=== PATIENT | female | born 1945 | race Caucasian/White ===

== ENCOUNTER → 2023-09-24 13:22 | Outpatient (REF) | payer MEDICARE, BC, SELFPAY | LOC: RAD 13:22 | PROVIDERS: ATTENDING PHYSICIAN Physician Assistant | DX: K59.01 Slow transit constipation (principal) | CPT/HCPCS: 74018 ==

== ENCOUNTER 2024-06-21 21:09 | Emergency (ER) | payer MEDICARE, BC, SELFPAY ==
[2024-06-21 21:21] VITALS: BP 99/67
[2024-06-21 21:40] LABS: % Basophils 0.3 % (0-2); % Immature Granulocytes 0.3 % (0-0.5); % Lymphocytes 19.2 % (20.5-51.1); % Monocytes 6.7 % (1.7-9.3); % Neutrophils 73.5 % (42.2-75.2); Absolute Lymphocytes 1.7 10^3/uL (1.2-3.4); Absolute Monocytes 0.6 10^3/uL (0.1-0.6); Absolute Neutrophils 6.5 10^3/uL (1.4-6.5); Hematocrit 33.9 % (37.0-47.0); Hemoglobin 11.5 g/dL (12.0-16.0); Mean Corp Hgb Conc. 33.9 g/dL (33.0-37.0); Mean Corpuscular Hgb 32.2 pg (27.0-31.0); Mean Platelet Volume 9.8 fL (7.4-10.4); Nucleated Red Blood Cells % 0 %; Platelet Count 313 10^3/uL (130-400); Red Blood Cell Count 3.57 10^6/uL (4.20-5.40); Red Cell Dist. Width 11.9 % (11.5-14.5); White Blood Cell Count 8.8 10^3/uL (4.8-10.8)
[2024-06-21 21:58] LABS: ALT (SGPT) 19 U/L (0-35); AST (SGOT) 28 U/L (14-36); Albumin 3.7 g/dl (3.5-5.0); Alkaline Phosphatase 80 U/L (38-126); Blood Urea Nitrogen 29 mg/dl (7-17); Calcium 10.1 mg/dl (8.4-10.2); Carbon Dioxide 30 mmol/L (22-30); Chloride 100 mmol/L (98-107); Glucose 117 mg/dl (70-99); Potassium 4.2 mmol/L (3.5-5.1); Sodium 140 mmol/L (135-145); Total Bilirubin 0.6 mg/dl (0.2-1.3); Total Protein 6.4 g/dl (6.3-8.2); eGFR 38.03
[2024-06-21 22:46] VITALS: BP 93/54
[2024-06-21 23:00] VITALS: BP 99/54
--- NOTE | 2024-06-21 23:00 | EDRN ---
Report received, patient is sleeping at this time.
--- NOTE | 2024-06-21 23:00 | ED.GENMED ---
History of Present Illness
General
Chief Complaint: Weakness
Source: senior living records
Time Seen by Provider: 06/21/24 22:49
History of Present Illness
History of Present Illness:
79-year-old female sent to the emergency room from [facility]. Transfer note indicates the patient has times of agitation. Currently patient is calm but not answering questions which is reportedly baseline. I have placed a call to the
patient's daughter to eng more information but the call went to voicemail.
Phy Exam
Physical Exam
Physical Exam:
General: Sleeping but awakens, appears stated age
Vitals: unremarkable
Head: Atraumatic
Eyes: Pupils equal, EOMI
Throat: Airway intact, no exudates
Neck: Trachea midline
Lungs: Clear and equal b/l
Heart: Regular rate, no murmurs
Abd: Soft, Nontender, No pulsatile mass
Neuro: Grossly nonfocal
Skin: Warm, dry, no rash
Extremities: pulses equal b/l, no edema
Course
Orders/Labs/Results
Orders:
Orders
06/21/24 21:34
Complete Blood Count/With Diff Urgent
Comprehensive Metabolic Panel Urgent
06/21/24 22:58
Straight cath- Treatment ONCE
06/21/24 22:59
Urinalysis Reflex To Culture Urgent
Date Specimen was Collected: 06/21/24
Time Specimen was Collected: 23:51
06/22/24 00:01
Urine Microscopic Reflex Cult Urgent
Urine Culture Urgent
KAMILAH Source: U
Specimen Description:
Date Specimen was Collected: 06/21/24
Time Specimen was Collected: 23:51
06/22/24 01:00
CT Head W/o Iv Contrast Urgent
Reason For Exam: altered mental status
Abnormal Lab Results
06/21/24 06/22/24
21:34 00:01
RBC 3.57 L 10^6/uL
(4.20-5.40)
Hgb 11.5 L g/dL
(12.0-16.0)
Hct 33.9 L %
(37.0-47.0)
MCH 32.2 H pg
(27.0-31.0)
Lymphocytes % 19.2 L %
(20.5-51.1)
BUN 29 H mg/dl
(7-17)
Creatinine 1.4 H mg/dL
(0.6-1.0)
Glucose 117 H mg/dl
(70-99)
Urine Ketones 1+ A
(Negative)
Ur Occult Blood Reflex 1+ A
(Negative)
Urine Urobilinogen 2+ A
(Neg - 1+)
Leukocyte Esterase Rfl 1+ A
(Negative)
Urine Bacteria (Reflex) Moderate A
(Negative)
Urine Albumin (Reflex) 2+ A
(Neg - Trace)
06/21/24 21:34
06/21/24 21:34
Vital Signs
Initial and Last Documented VS:
Initial Vital Signs
Temp Pulse Resp BP Pulse Ox
97.2 F 107 19 99/67 94
06/21/24 21:21 06/21/24 21:21 06/21/24 21:21 06/21/24 21:21 06/21/24 21:21
Last Documented Vital Signs
Temp Pulse Resp BP Pulse Ox
97.2 F 82 15 100/61 93
06/21/24 21:21 06/22/24 03:45 06/22/24 03:45 06/22/24 03:00 06/22/24 03:45
MDM/Problems Addressed
Differential Diagnosis Includes:
UTI, intracranial lesion, exacerbation of dementia
MDM/Problems Addressed:
Patient presents with periods of agitation. Workup here reveals no metabolic derangement or sign of infection. CT does not show any acute abnormalities. Patient's behavior is quite consistent with history of dementia. Patient can be discharged
home and her primary can adjust her medications to hopefully better control her periods of agitation.
*Radiology
Radiology exam reviewed: radiology read reviewed
*Pulse Oximetry
Patient hypoxic: no
*Critical Care Note
Total Time (30-74mins, 75-104mins- exclusive of procedures): Not Applicable
ED Attending Note
-
Portions of this chart may have been created with voice recognition software.� Occasional wrong word or��sound alike� substitutions may have occurred due to the inherent limitations of voice recognition software.
Discharge Plan
Departure
Patient Disposition: [facility]sp/SNF
Date of Disposition: 06/22/24
Time of Disposition: 02:55
Condition: Fair
Discharge Problem:
Dementia with agitation
Referrals:
Tripp Wong MD [Family Provider] -
Activity Restrictions/Additional Instructions:
There is no evidence for an acute infection or other unstable process. Patient's agitation is most certainly related to progression of dementia. This is something the patient's primary care provider should address.
Interventions
Interventions:
*Risk Screen - Suicide Last Done: 06/21/24 21:26
*General Assessment Last Done: 06/21/24 21:21
*Neglect/Abuse Screening Last Done: 06/21/24 21:21
ED- Fall Risk Assessment Last Done: 06/22/24 04:11
*ED COVID-19 Vaccine History Last Done: 06/22/24 04:11
*Nursing Disposition Last Done: 06/22/24 04:11
ED- Cardiac Assessment Last Done: 06/21/24 22:43
ED- Neurological Assessment Last Done: 06/21/24 22:43
ED- Pulmonary Assessment Last Done: 06/21/24 22:43
Discharge Date and Time
Discharge Date/Time: 06/22/24 04:12
Print Language: IRISH
[2024-06-22] VITALS: BP 96/81
[2024-06-22 00:48] LABS: Urine Albumin 2+ (Neg - Trace); Urine Bilirubin Negative (Negative); Urine Character Slightly Cloudy (Clear); Urine Color Yellow; Urine Glucose Negative (Negative); Urine Ketone 1+ (Negative); Urine Leukocyte 1+ (Negative); Urine Nitrite Negative (Negative); Urine Occult Blood 1+ (Negative); Urine Specific Gravity 1.025 (<1.030); Urine Urobilinogen 2+ (Neg - 1+)
[2024-06-22 01:00] VITALS: BP 93/66
[2024-06-22 02:00] VITALS: BP 93/62
[2024-06-22 02:00] LABS: Urine Calcium Oxalate Crystals Seen; Urine Granular Cast 0-2 /LPF (0); Urine Squamous Cell >30 /LPF (Few)
[2024-06-22 02:01] LABS: Urine Bacteria Moderate (Negative); Urine Red Blood Cell 0-2 /HPF (0-2)
[2024-06-22 03:00] VITALS: BP 100/61
== END 2024-06-22 04:12 ==
LOC: EMR 21:09
PROVIDERS: Emergency Medicine; EMERGENCY PHYSICIAN Emergency Medicine; FAMILY PHYSICIAN Internal Medicine
DX: F03.911 Unspecified dementia, unspecified severity, with agitation (principal)
CPT/HCPCS: 99284; 70450; 80053; 81003; 81015; 85025; 87086

== ENCOUNTER 2024-07-29 18:46 | Emergency (ER) | payer MEDICARE, BC, SELFPAY ==
[2024-07-29 18:53] VITALS: BP 146/76
[2024-07-29] MEDS: ATIVAN 1 MG PO (20:05)
[2024-07-29] MEDS: SEROQUEL 100 MG PO (20:05)
[2024-07-29] MEDS: DESYREL 50 MG PO (20:05)
[2024-07-29 20:50] LABS: % Basophils 0.4 % (0-2); % Eosinophils 0.4 % (0-6); % Immature Granulocytes 0.3 % (0-0.5); % Lymphocytes 29.2 % (20.5-51.1); % Monocytes 13.8 % (1.7-9.3); % Neutrophils 55.9 % (42.2-75.2); Absolute Neutrophils 3.9 10^3/uL (1.4-6.5); Hematocrit 25.2 % (37.0-47.0); Hemoglobin 8.4 g/dL (12.0-16.0); Mean Corp Hgb Conc. 33.3 g/dL (33.0-37.0); Mean Corpuscular Hgb 32.1 pg (27.0-31.0); Mean Corpuscular Volume 96.2 fL (81.0-99.0); Mean Platelet Volume 8.7 fL (7.4-10.4); Nucleated Red Blood Cells % 0 %; Platelet Count 290 10^3/uL (130-400); Red Blood Cell Count 2.62 10^6/uL (4.20-5.40); Red Cell Dist. Width 15.3 % (11.5-14.5)
[2024-07-29 21:05] LABS: ALT (SGPT) 18 U/L (0-35); AST (SGOT) 20 U/L (14-36); Albumin 3.6 g/dl (3.5-5.0); Alkaline Phosphatase 121 U/L (38-126); Blood Urea Nitrogen 20 mg/dl (7-17); Carbon Dioxide 28 mmol/L (22-30); Chloride 98 mmol/L (98-107); Glucose 136 mg/dl (70-99); Potassium 4.1 mmol/L (3.5-5.1); Sodium 134 mmol/L (135-145); Total Bilirubin 0.7 mg/dl (0.2-1.3); Total Protein 6.3 g/dl (6.3-8.2); eGFR > 60.00
[2024-07-29 21:24] LABS: Urine Albumin Negative (Neg - Trace); Urine Bilirubin Negative (Negative); Urine Character Clear (Clear); Urine Color Yellow; Urine Glucose Negative (Negative); Urine Ketone Negative (Negative); Urine Leukocyte 1+ (Negative); Urine Nitrite Negative (Negative); Urine Occult Blood Negative (Negative); Urine Specific Gravity 1.015 (<1.030); Urine Urobilinogen Negative (Neg - 1+)
[2024-07-29 21:32] LABS: Urine Bacteria Few (Negative); Urine Red Blood Cell 0-2 /HPF (0-2)
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
== END 2024-07-29 23:05 | disposition home or self-care (01) ==
LOC: EMR 18:46
PROVIDERS: Physician Assistant; EMERGENCY PHYSICIAN Emergency Medicine; FAMILY PHYSICIAN Internal Medicine
DX: F03.911 Unspecified dementia, unspecified severity, with agitation (principal); D64.9 Anemia, unspecified
CPT/HCPCS: 99283; 80053; 81003; 81015; 85025; 87086